=== PATIENT | male | born 1985 | race Hispanic/Latino ===

== ENCOUNTER 2019-02-09 22:06 | Emergency (ER) | payer OTHER, SELFPAY ==
[~2019-02-09] VITALS: Ht 170.2 cm; Wt 65.5 kg
[2019-02-09 22:07] VITALS: BP 129/92
[2019-02-09] MEDS ORDERED: ONDANSETRON 4MG/2ML VIAL (J2405) IV ONE (22:45)
[2019-02-09] MEDS ORDERED: LIDOCAINE 1% MDV 20ML VIAL SC ONE (23:15)
[2019-02-09] MEDS: MORPHINE 4 MG/ML 1ML VIAL/SYRINGE (J2270) IV PRN (23:33)
[2019-02-10] MEDS: MORPHINE 4 MG/ML 1ML VIAL/SYRINGE (J2270) IV PRN (00:10)
--- NOTE | 2019-02-10 01:40 | REPVR ---
EXAM: CT Left Lower Extremity Without Contrast, Ankle EXAM DATE/TIME: 02/10/2019 12:47 AM CLINICAL HISTORY: 34 years old, male; Injury or trauma; Injury history: Soccer injury; Initial encounter; Fracture, traumatic; Closed fracture; Ankle; Left; Not specified; Additional info: Post reduction request of Dr. Li TECHNIQUE: Imaging protocol: CT of the Left lower extremity without contrast was performed. Exam focused on the ankle. Coronal and sagittal reformatted images were created and reviewed. Radiation optimization: All CT scans at this facility use at least one of these dose optimization techniques: automated exposure control; mA and/or kV adjustment per patient size (includes targeted exams where dose is matched to clinical indication); or iterative reconstruction. COMPARISON: No relevant prior studies available. FINDINGS: Bones/joints: Mildly displaced fracture of the distal fibular shaft with approximately 5 mm lateral displacement of the distal fragment and apex lateral angulation at the fracture site. Mildly comminuted, displaced fractures of the medial and posterior malleoli. Subtle deformity of the ankle mortise. No dislocation. Small to moderate effusion. Soft tissues: Soft tissue swelling. IMPRESSION: 1. Trimalleolar fracture, as described above. 2. Additional findings, as above. Electronically signed by: Marco A Maharaj On 02/10/2019 01:39:43 AM
[2019-02-10] MEDS ORDERED: PERCOCET 5MG/325MG TAB PO ONE (01:45)
[2019-02-10] MEDS ORDERED: PERC5TAB12 PO (01:46)
--- NOTE | 2019-02-10 01:48 | REP ---
Clinical: Trauma. Technique: AP and lateral views of the left tibia / fibula. Findings: Comminuted mildly displaced angulated fracture of the distal tibial metadiaphysis extends to the joint space along with fractures of the proximal and distal fibular shaft. Impression: Multiple fractures. Electronically Signed by Aurelio Zhu MD 02/10/2019 01:39 A
--- NOTE | 2019-02-10 08:27 | REP ---
Left ankle: Two views. History: Post reduction views fluoroscopic spot images. 29 seconds of fluoroscopy time is reported. Findings: Mortise and lateral views through plaster of the left ankle demonstrate an intact ankle mortise. Distal fibular diaphyseal fracture is seen. Electronically Signed by Holden Cleveland MD 02/10/2019 01:04 P
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
== END 2019-02-10 02:01 | disposition home or self-care (01) ==
LOC: M ED 22:06
DX: S93.05XA Dislocation of left ankle joint, initial encounter (principal); S82.852A Displaced trimalleolar fracture of left lower leg, initial encounter for closed fracture; W50.1XXA Accidental kick by another person, initial encounter; Y92.148 Other place in prison as the place of occurrence of the external cause; Y93.66 Activity, soccer
CPT/HCPCS: 27818; 73590; 73600; 73700; 96374; 96375; 96376; 99284; J2270; J2405